=== PATIENT | male | born 1960 | race Caucasian/White ===

== ENCOUNTER → 2018-11-02 | Day surgery (SDC) | payer OTHER ==
[~2018-11-02] MED LIST: ALBUTEROL 90MCG/PUFF INHALER IH ONE; BUPIVACAINE HCL 0.25%/EPI. PF 30 ML VIAL IJ ONE; DEXAMETHASONE SOD PHOS 4 MG/ML VIAL ONE; FENTANYL 250MCG/5ML VIAL ONE; GLYCOPYRROLATE 0.2 MG/1 ML 1 ML ONE; LACTATED RINGERS 1,000 ML IV ONE; LACTATED RINGERS 1,000 ML IV.SOLN IV ONE; LEVALBUTEROL HCL 1.25 MG/3 ML AMPUL.NEB NEB ONE; LIDOCAINE HCL/PF 2% 100 MG/5 ML VIAL IJ ONE; Lidocaine 1% PF 30ml 10 MG/ML VIAL ONE; MIDAZOLAM HCL 2 MG/2 ML VIAL ONE; NORMAL SALINE 1,000 ML IV.SOLN IV ONE; ONDANSETRON HCL/PF 4 MG/ 2ML VIAL ONE; PROPOFOL 200 MG/20 ML VIAL IV ONE; ROCURONIUM BROMIDE 10 MG/ML 5ML VIAL ONE; SEVOFLURANE 250 ML LIQUID IH ONE; SODIUM CHLORIDE IRRIG SOLUTION 3,000 ML IRRIG.SOLN IR ONE; SUGAMMADEX 200 mg/2mL 200 MG/2 ML VIAL IV ONE; THROMBIN (RECOMBINANT) 20,000 UNIT VIAL TP ONE; ceFAZolin SODIUM 1 GM VIAL ONE; methylPREDNISolone ACETATE 80 MG/ML VIAL IM ONE
== END ==
LOC: OPSURG 05:29
PROVIDERS: ATTEND Orthopaedic Surgery
DX: M48.062 Spinal stenosis, lumbar region with neurogenic claudication (principal)
CPT/HCPCS: 63042; 77003; J0690; J1100; J2001; J2250; J2405; J2704; J3490; J7614; J7120